=== PATIENT | male | born 1965 | race Two or more races ===

== ENCOUNTER 2021-08-07 09:48 | Emergency (ER) | payer SELFPAY ==
[~2021-08-07] VITALS: Ht 167.6 cm; Wt 72.2 kg
[~2021-08-07 09:48] MED LIST: [UNRECOGNIZED DRUG - REMARK]
[2021-08-07 10:08] VITALS: BP 159/85
--- NOTE | 2021-08-07 10:27 | PHYS DOC ---
Past Medical History Past Medical History: No Pertinent History Past Surgical History: No Surgical History Alcohol Use: Heavy Drug Use: None General Adult EDM: Chief Complaint: HEAD INJURY/TRAUMA HPI: HPI: Patient is a 56-year-old male that presents today with a bump on his head. Patient is Lao-speaking only and all information obtained during the HPI was done using interpretive services. Patient states that on Saturday he was working and a 2 x 4 fell and hit him on the head, he states he had no loss of consciousness, he has had no nausea or vomiting, or headache. He states his concern is is that the swelling has not gone down and he is requesting some medications for that to go down. Review of Systems: Review of Systems: Constitutional: Denies fever or chills. [] Eyes: Denies change in visual acuity. [] HENT: Bump on his head Respiratory: Denies cough or shortness of breath. [] Cardiovascular: Denies chest pain or edema. [] GI: Denies abdominal pain, nausea, vomiting, bloody stools or diarrhea. [] : Denies dysuria. [] Musculoskeletal: Denies back pain or joint pain. [] Integument: Denies rash. [] Neurologic: Denies headache, focal weakness or sensory changes. [] Endocrine: Denies polyuria or polydipsia. [] Lymphatic: Denies swollen glands. [] Psychiatric: Denies depression or anxiety. [] Heart Score: C/O Chest Pain: No Risk Factors: Risk Factors: DM, Current or recent (<one month) smoker, HTN, HLP, family history of CAD, obesity. Risk Scores: Score 0 - 3: 2.5% MACE over next 6 weeks - Discharge Home Score 4 - 6: 20.3% MACE over next 6 weeks - Admit for Clinical Observation Score 7 - 10: 72.7% MACE over next 6 weeks - Early Invasive Strategies Allergies: Allergies: Allergies Coded Allergies Type Severity Reaction Last Updated Verified No Known Drug Allergies 06/17/13 No Physical Exam: PE: Constitutional: Well developed, well nourished, no acute distress, non-toxic appearance. [] HENT: Inspection of palpation of the head shows a contusion to the left parietal area, no crepitus no step-offs, no laceration, no johnson sign. Left tympanic membrane is within normal limits. Eyes: PERRLA, EOMI, conjunctiva normal, no discharge. [] Neck: Normal range of motion, no tenderness, supple, no stridor. [] Cardiovascular:Heart rate regular rhythm, no murmur [] Lungs & Thorax: Bilateral breath sounds clear to auscultation [] Abdomen: Bowel sounds normal, soft, no tenderness, no masses, no pulsatile masses. [] Skin: Warm, dry, no erythema, no rash. [] Back: No tenderness, no CVA tenderness. [] Extremities: No tenderness, no cyanosis, no clubbing, ROM intact, no edema. [] Neurologic: Alert and oriented X 3, normal motor function, normal sensory function, no focal deficits noted. [] Psychologic: Affect normal, judgement normal, mood normal. [] Current Patient Data: Vital Signs: Vital Signs Date Time Temp Pulse Resp B/P (MAP) Pulse Ox O2 Delivery O2 Flow Rate FiO2 08/07/21 10:08 99.1 84 18 159/85 (109) 96 Room Air 99.1 EKG: EKG: [] Radiology/Procedures: Radiology/Procedures: [] Course & Med Decision Making: Course & Med Decision Making Pertinent Labs and Imaging studies reviewed. (See chart for details) Patient appears in no acute distress, no neurological symptoms were noted either centrally or focally, will discharge patient with instructions to follow-up with his primary care or one of the listed clinics in his discharge instructions for further management, ice 20 minutes on 3-4 times daily and take Tylenol and/or ibuprofen as needed for pain. Return precautions will be included in his discharge instructions which will include a change in level of consciousness, development of a fever, inability to use 1 side your body or any other concerns you may have. Dragon Disclaimer: Dragon Disclaimer: This electronic medical record was generated, in whole or in part, using a voice recognition dictation system. Departure Departure Impression: Primary Impression: Contusion of head Qualified Codes: S00.03XA - Contusion of scalp, initial encounter Disposition: HOME / SELF CARE / HOMELESS Condition: STABLE Referrals: NON,STAFF (PCP) Patient Instructions: Facial or Scalp Contusion Additional Instructions: Ice 20 minutes on 3-4 times daily [id number] Tylenol and/or ibuprofen as labeled directed for pain Follow-up with your primary care physician or one of the listed clinics below for further management of this and still there in 5 to 7 days Return to the emergency department if you have a change in level of consciousness, inability to use 1 side your body, or development of a fever. SANDRA FORBES APRN Aug 07, 2021 10:27
== END 2021-08-07 10:30 | disposition home or self-care (01) ==
LOC: ER 09:48
DX: S00.03XA Contusion of scalp, initial encounter (principal); W18.09XA Striking against other object with subsequent fall, initial encounter; Y93.89 Activity, other specified; Y92.89 Other specified places as the place of occurrence of the external cause; Y99.8 Other external cause status
CPT/HCPCS: 99282